=== PATIENT | male | born 1955 | race Caucasian/White ===

== ENCOUNTER 2019-11-11 13:29 | Inpatient (IN) | payer SELFPAY ==
[2019-11-11] MEDS ORDERED: Ketorolac 30 MG/ML SDV IM ONE (13:43)
--- NOTE | 2019-11-11 13:50 | EDM.PDOC ---
ED HPI GENERAL MEDICAL PROBLEM - General Chief Complaint: Respiratory Problem Stated Complaint: TROUBLE BREATHING,CHEST HURT Time Seen by Provider: 11/11/19 13:38 Source of Information: Reports: Patient, Family History Limitations: Reports: No Limitations - History of Present Illness INITIAL COMMENTS - FREE TEXT/NARRATIVE: Ran comes into [facility] ED with a 2 month hx of chest congestion and productive cough of colored sputa. BRB admixed with sputa apparent over the past month. There is more recent onset of bilateral chest pain, R>L, and SOB over the past week, escalating over the past 24 hrs. No position relieves the chest pain, and it does not radiate into the back. There is no known hx of COPD, asthma, TB, or other primary lung disease. He is a heavy smoker for several years. He has tried no meds. R chest & back Pain Score (Numeric/FACES): 4 - Related Data Allergies Allergy/AdvReac Type Severity Reaction Status Date / Time No Known Allergies Allergy Verified 11/11/19 13:52 Home Meds: Home Meds NK [No Known Home Meds] 11/11/19 [History] ED ROS GENERAL - Review of Systems Review Of Systems: See Below Constitutional: Reports: Malaise, Decreased Appetite HEENT: Reports: No Symptoms Respiratory: Reports: Shortness of Breath, Cough Cardiovascular: Reports: Chest Pain Endocrine: Reports: No Symptoms GI/Abdominal: Reports: No Symptoms : Reports: No Symptoms Musculoskeletal: Reports: No Symptoms Skin: Reports: No Symptoms Neurological: Reports: No Symptoms Psychiatric: Reports: No Symptoms Hematologic/Lymphatic: Reports: No Symptoms Immunologic: Reports: No Symptoms ED EXAM, GENERAL - Physical Exam Exam: See Below Exam Limited By: No Limitations General Appearance: Alert, WD/WN, Anxious, Mild Distress Eye Exam: Bilateral Eye: EOMI, Normal Inspection, PERRL Ears: Normal External Exam Nose: Normal Inspection Throat/Mouth: Normal Oropharynx, No Airway Compromise, Other (poor dentition) Head: Normocephalic Neck: Normal Inspection, Supple, Non-Tender, Full Range of Motion Respiratory/Chest: Chest Non-Tender, Decreased Breath Sounds (R>L), Crackles, Prolonged Expiration Cardiovascular: Regular Rate, Rhythm, No Edema, No JVD, No Murmur, No Rub GI/Abdominal: Normal Bowel Sounds, Soft, Non-Tender, No Organomegaly, No Distention, No Mass (Male) Exam: Deferred Rectal (Males) Exam: Deferred Back Exam: Normal Inspection Extremities: Normal Inspection Neurological: Alert, Oriented, CN II-XII Intact, Normal Cognition, Normal Gait, No Motor/Sensory Deficits Psychiatric: Normal Affect, Anxious Skin Exam: Warm, Dry, Intact Lymphatic: No Adenopathy Course - Vital Signs Text/Narrative:: Following assessment, I obtained a 2 view chest x ray noting large R pleural effusion with layering on lat. decub view; 12 lead ekg noting NSR; CBC noted Hgb 12.6 gm, WBC 26,100, plts adequate, L shift on diff; Lactic acid 3.1, Cr 1.3 , BUN 24; UA pending; CRP 32.2 BC pending. I discussed case with Hospitalist who supports admission and surgical consult for thoracentesis. Last Recorded V/S: Last Vital Signs Temp 35.9 C 11/11/19 13:30 Pulse 98 11/11/19 13:30 Resp 28 H 11/11/19 13:30 BP 133/67 11/11/19 13:30 Pulse Ox 94 L 11/11/19 13:30 - Orders/Labs/Meds Orders: Active Orders 24 hr Category Date Time Status Patient Status Manage Transfer [TRANSFER] Routine ADT 11/11/19 14:30 Ordered EKG Documentation Completion [RC] ASDIRECTED Care 11/11/19 13:42 Active Chest 2V [CR] Stat Exams 11/11/19 14:17 Taken Chest Decubitus Rt [CR] Stat Exams 11/11/19 14:18 Taken CULTURE BLOOD [BC] Stat Lab 11/11/19 13:41 Ordered D-DIMER QUANTITATIVE [COAG] Stat Lab 11/11/19 13:45 Received URINALYSIS W/MICROSCOPIC [UA W/MICROSCOPIC] [URIN] Stat Lab 11/11/19 13:41 Ordered Sodium Chloride 0.9% [Normal Saline] 1,000 ml Med 11/11/19 14:30 Active IV ASDIRECTED Sodium Chloride 0.9% [Saline Flush] Med 11/11/19 14:18 Active 10 ml FLUSH ASDIRECTED PRN Peripheral IV Insertion Adult [OM.PC] Routine Oth 11/11/19 14:18 Ordered EKG 12 Lead [EK] Routine Ther 11/11/19 13:41 Ordered Medication Orders Sodium Chloride (Normal Saline) 1,000 mls @ 150 mls/hr IV ASDIRECTED FLORI Sodium Chloride (Saline Flush) 10 ml FLUSH ASDIRECTED PRN PRN Reason: Keep Vein Open Labs: Laboratory Tests 11/11/19 11/11/19 11/11/19 Range/Units 13:45 13:45 13:45 WBC 26.1 H (4.5-12.0) X10-3/uL RBC 4.92 (4.30-5.75) x10(6)uL Hgb 12.6 L (13.5-17.8) g/dL Hct 39.1 (30.0-51.3) % MCV 79.4 L (80-96) fL MCH 25.6 L (27.7-33.6) pg MCHC 32.2 (32.2-35.4) g/dL RDW 16.4 H (11.5-15.5) % Plt Count 517 H (125-369) X10(3)uL MPV 7.1 L (7.4-10.4) fL Add Manual Diff Yes Neutrophils % (Manual) 54 (46-82) % Band Neutrophils % 28 H* (0-6) % Lymphocytes % (Manual) 7 L (13-37) % Monocytes % (Manual) 5 (4-12) % Metamyelocytes % 5 H (0-0) % Myelocytes % 1 H (0-0) % Toxic Granulation Few H (NOT SEEN) Anisocytosis Few Sodium 135 (135-145) mmol/L Potassium 4.8 (3.5-5.3) mmol/L Chloride 97 L (100-110) mmol/L Carbon Dioxide 26 (21-32) mmol/L BUN 24 H (7-18) mg/dL Creatinine 1.3 (0.70-1.30) mg/dL Est Cr Clr Drug Dosing 55.08 mL/min Estimated GFR (MDRD) 56 L (>60) BUN/Creatinine Ratio 18.5 (9-20) Glucose 121 H (80-116) mg/dL Lactic Acid (0.4-2.2) mmol/L Calcium 9.2 (8.6-10.2) mg/dL Total Bilirubin 0.7 (0.1-1.3) mg/dL AST 10 (5-25) IU/L ALT 13 (12-36) U/L Alkaline Phosphatase 89 (56-112) IU/L Troponin I < 0.017 L (<0.017-0.056) ng/mL C-Reactive Protein 32.2 H* (0.5-0.9) mg/dL Total Protein 7.9 (6.0-8.0) g/dL Albumin 2.6 L (3.2-4.6) g/dL Globulin 5.3 g/dL Albumin/Globulin Ratio 0.5 11/11/19 Range/Units 13:45 WBC (4.5-12.0) X10-3/uL RBC (4.30-5.75) x10(6)uL Hgb (13.5-17.8) g/dL Hct (30.0-51.3) % MCV (80-96) fL MCH (27.7-33.6) pg MCHC (32.2-35.4) g/dL RDW (11.5-15.5) % Plt Count (125-369) X10(3)uL MPV (7.4-10.4) fL Add Manual Diff Neutrophils % (Manual) (46-82) % Band Neutrophils % (0-6) % Lymphocytes % (Manual) (13-37) % Monocytes % (Manual) (4-12) % Metamyelocytes % (0-0) % Myelocytes % (0-0) % Toxic Granulation (NOT SEEN) Anisocytosis Sodium (135-145) mmol/L Potassium (3.5-5.3) mmol/L Chloride (100-110) mmol/L Carbon Dioxide (21-32) mmol/L BUN (7-18) mg/dL Creatinine (0.70-1.30) mg/dL Est Cr Clr Drug Dosing mL/min Estimated GFR (MDRD) (>60) BUN/Creatinine Ratio (9-20) Glucose (80-116) mg/dL Lactic Acid 3.1 H (0.4-2.2) mmol/L Calcium (8.6-10.2) mg/dL Total Bilirubin (0.1-1.3) mg/dL AST (5-25) IU/L ALT (12-36) U/L Alkaline Phosphatase (56-112) IU/L Troponin I (<0.017-0.056) ng/mL C-Reactive Protein (0.5-0.9) mg/dL Total Protein (6.0-8.0) g/dL Albumin (3.2-4.6) g/dL Globulin g/dL Albumin/Globulin Ratio Meds: Medications Generic Name Dose Route Start Last Admin Trade Name Freq PRN Reason Stop Dose Admin Sodium Chloride 1,000 mls @ 150 mls/hr 11/11/19 14:30 Normal Saline IV ASDIRECTED FLORI Sodium Chloride 10 ml 11/11/19 14:18 Saline Flush FLUSH ASDIRECTED PRN Keep Vein Open Discontinued Medications Generic Name Dose Route Start Last Admin Trade Name Freq PRN Reason Stop Dose Admin Ketorolac Tromethamine 30 mg 11/11/19 13:43 Toradol IM 11/11/19 13:44 ONETIME ONE Departure - Departure Time of Disposition: 14:45 Disposition: Admitted As Inpatient 68 Condition: Poor Clinical Impression: Pneumonia, Pleural effusion on right - Discharge Information *PRESCRIPTION DRUG MONITORING PROGRAM REVIEWED*: Not Applicable *COPY OF PRESCRIPTION DRUG MONITORING REPORT IN PATIENT CRISTA: Not Applicable Referrals: PCP,None [Primary Care Provider] - Forms: ED Department Discharge Sepsis Event Note - Focused Exam Vital Signs: Vital Signs Temp Pulse Resp BP Pulse Ox 11/11/19 13:30 35.9 C 98 28 H 133/67 94 L Date Exam was Performed: 11/11/19 Time Exam was Performed: 14:42 - Problem List & Annotations (1) Pleural effusion on right SNOMED Code(s): 59496784 Code(s): J90 - PLEURAL EFFUSION, NOT ELSEWHERE CLASSIFIED Status: Acute Annotation/Comment:: Surgical consult regarding thoracentesis. (2) Pneumonia SNOMED Code(s): 062590663 Code(s): J18.9 - PNEUMONIA, UNSPECIFIED ORGANISM Status: Acute Annotation /Comment:: Pneumonia of unknown etiology, needs broad spectrum coverage Qualifiers: Pneumonia type: due to unspecified organism Laterality: right Lung location: unspecified part of lung Qualified Code(s): J18.9 - Pneumonia, unspecified organism - Problem List Review Problem List Initiated/Reviewed/Updated: Yes - My Orders Last 24 Hours: My Active Orders 11/11/19 13:41 CULTURE BLOOD [BC] Stat URINALYSIS W/MICROSCOPIC [UA W/MICROSCOPIC] [URIN] Stat EKG 12 Lead [EK] Routine 11/11/19 13:42 EKG Documentation Completion [RC] ASDIRECTED 11/11/19 13:45 D-DIMER QUANTITATIVE [COAG] Stat 11/11/19 14:17 Chest 2V [CR] Stat 11/11/19 14:18 Chest Decubitus Rt [CR] Stat Sodium Chloride 0.9% [Saline Flush] 10 ml FLUSH ASDIRECTED PRN Peripheral IV Insertion Adult [OM.PC] Routine 11/11/19 14:30 Patient Status Manage Transfer [TRANSFER] Routine Sodium Chloride 0.9% [Normal Saline] 1,000 ml IV ASDIRECTED - Assessment/Plan Last 24 Hours: My Active Orders 11/11/19 13:41 CULTURE BLOOD [BC] Stat URINALYSIS W/MICROSCOPIC [UA W/MICROSCOPIC] [URIN] Stat EKG 12 Lead [EK] Routine 11/11/19 13:42 EKG Documentation Completion [RC] ASDIRECTED 11/11/19 13:45 D-DIMER QUANTITATIVE [COAG] Stat 11/11/19 14:17 Chest 2V [CR] Stat 11/11/19 14:18 Chest Decubitus Rt [CR] Stat Sodium Chloride 0.9% [Saline Flush] 10 ml FLUSH ASDIRECTED PRN Peripheral IV Insertion Adult [OM.PC] Routine 11/11/19 14:30 Patient Status Manage Transfer [TRANSFER] Routine Sodium Chloride 0.9% [Normal Saline] 1,000 ml IV ASDIRECTED Plan: Admit as InPt. Hospitalist to see.
[2019-11-11] MEDS ORDERED: Sodium Chloride 0.9% 1,000 ML IV SCH (14:30)
[2019-11-11] MEDS ORDERED: Piperacillin/Tazobactam 4.5 GM in Sodium Chloride 0.9% 100 ML IV SCH (15:00)
[2019-11-11] MEDS: Acetaminophen/HYDROcodone 325-5 MG Tab PO PRN ×2 (16:59→21:27)
[2019-11-11] MEDS: Nicotine 21 MG/24 Hr Patch TRDERM SCH (18:49)
[2019-11-11 19:23] LABS: COMMENTS: MONOCYTES- 9
--- NOTE | 2019-11-11 20:16 | OR ---
DATE OF OPERATION: 11/11/2019 SURGEON: Pj Menendez MD HISTORY: This 64-year-old gentleman is seen in the emergency room at the request of Dr. Swift for thoracentesis. The patient presents with chest pain and shortness of breath, and is found to have a large pleural effusion on his right side. He also has a white blood cell count of 26,000. I reviewed the chest x- ray and examined the patient. I agree thoracentesis is indicated. I have reviewed the risks and complications with the patient and informed consent was obtained. PROCEDURE IN DETAIL: In the upright sitting position, I percussed and auscultated and marked on his right posterior chest the area at approximately the 8th intercostal space. This area was prepped with ChloraPrep and draped sterilely. 1% lidocaine was used for local anesthesia. A 25-gauge needle was used to aspirate between the intercostal space and yellowish fluid did return. A small incision was made and thoracentesis catheter inserted. 1500 mL of turbid cloudy armendariz fluid was removed. This did result in improved breathing for the patient. O2 sats were 98%. The catheter was removed and a Band-Aid applied. The patient tolerated the procedure well. Fluid will be sent for analysis. Postprocedure chest x-ray was obtained. This shows improvement in the pleural effusion, but a fair amount of fluid remains. /[id number] TONY/JULISSA
[2019-11-11] MEDS: Piperacillin/Tazobactam 4.5 GM in Sodium Chloride 0.9% 100 ML IV SCH (21:22)
[2019-11-11] MEDS: Sodium Chloride 0.9% 10 ML Syringe FLUSH PRN (21:24)
[2019-11-12] MEDS: Acetaminophen/HYDROcodone 325-5 MG Tab PO PRN ×4 (02:45→19:57)
[2019-11-12] MEDS: Piperacillin/Tazobactam 4.5 GM in Sodium Chloride 0.9% 100 ML IV SCH ×4 (03:56→22:04)
[2019-11-12] MEDS: Sodium Chloride 0.9% 10 ML Syringe FLUSH PRN ×6 (04:33→22:37)
[2019-11-12] MEDS: Nicotine 21 MG/24 Hr Patch TRDERM SCH (10:11)
--- NOTE | 2019-11-12 11:26 | HP ---
ADMISSION DATE: 11/11/2019 REASON FOR VISIT: Feeling poorly, complicated cough, and hemoptysis. HISTORY OF PRESENT ILLNESS: Ran Penn is a 64-year-old, male, resides in [place], seen at [facility] by Dr. Gregory Swift, ER physician. He presents with 2-month history of complicated cough, chest congestion, productive sputum, on occasion bright red blood, increasing shortness of breath, and a sense of reduced well-being, some problematic increasing right and left chest wall pain and shortness of breath 24 hours prior to admission. He states some radiation into the mid back. Long-term smoker of 1 to 2 pack per day, 40 years' duration. MEDICATIONS: Daily home medications, none. PAST MEDICAL HISTORY: Significant for no previous operative procedures, hospitalizations, unusual childhood diseases, major injuries, or fractures. 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 . 4 children; 3 boys, 1 girl. 15 grandchildren suspected. 1 to 2 pack per day smoker for 40+ years' duration, iqfgrcip-ry-yss minimal alcohol consumption. No chewing tobacco. No illicit drug use. No vaping. FAMILY HISTORY: Dad at 69 of MVA, mom in her 80 of old age. Siblings have been in good health. REVIEW OF SYSTEMS: CONSTITUTIONAL: He has had about a 20-pound weight loss. EYES: Sees well. EARS: Difficulty in crowds with decreased hearing. Oropharynx: Intact dentition. Absent teeth many. CHEST: Please see HPI. CV: Please see HPI. GI: Regular predictable stools. No blood in stools. : Voiding pattern comfortable. No blood in urine. ORTHOPEDIC: Generalized joint complaints. ALLERGIES: None. ENDOCRINE: No excessive thirst or urination. PSYCHIATRIC: Mood stable. PHYSICAL EXAMINATION: VITAL SIGNS: Stable. 36.4, 112/74, mean blood pressure 86, 18 is the respirations, 100 is the O2 on 2 L. GENERAL: Gentleman appears older than stated age. Cooperative, conversant. Gives a good history. HEENT: Funduscopic benign. Conjunctivae clear. Bright tympanic membranes. Decreased hearing. Clear nasal discharge. Mouth and oropharynx reveal poor dentition. Tongue midline. No intraoral lesions. NECK: Benign. Some shotty anterior adenopathy. CHEST: Decreased breath sounds. Rales, lower 1/2 right lower lung field. Left lung field, coarse rhonchi. HEART: Distant heart sounds. Occasional ectopy. No significant murmur. ABDOMEN: Benign. No surgical scars. : Normal male genitalia. Testes descended. Hernias absent. RECTAL: Declined. EXTREMITIES: Well perfused. Venous stasis changes present. LABORATORY STUDIES: White count 26,100, hemoglobin 12.6, microcytic indices, platelets at elevated 517, 80% neutrophilic bands. D-dimer 1.46, BUN 24, GFR 56. Lactic acid 3.1. CRP 32.2. Radiographs revealed a large pleural effusion, pneumonia and/or mass, right lung. ASSESSMENT: Right lower lung mass, suspect pneumonia, concurrent malignancy is a concern. PLAN: Hospitalization indicated. IV Zosyn, IV vancomycin, aggressive fluids and hydration, complementary care and well being. Dr. Menendez has provided a thoracentesis for evaluation of fluids. /[id number] /JULISSA
--- NOTE | 2019-11-12 12:00 | PN ---
DATE SEEN: 11/12/2019 SUBJECTIVE: Ran Penn is a 64-year-old male from [place], admitted with right-sided pneumonia, large pleural effusion, tapped at 150 mL. Pneumonia is certainly an issue, other issues complicating possibility. He did well overnight, slept reluctantly, feeling well. A little short of breath. O2 has been weaned and discontinued. PHYSICAL EXAMINATION: VITAL SIGNS: Stable; 36.4, 74, 115/60, 18, and 95. GENERAL: Appears comfortable. NECK: Benign. Thyroid small. CHEST: Decreased breath sounds, right lower lung patel. Distant heart sounds. ABDOMEN: Benign. ASSESSMENT: Right lung pleural effusion, pneumonia versus inflammatory versus infectious versus malignancy. PLAN: CT chest, abdomen, and pelvis will be performed, continue IV Zosyn, continue IV vancomycin, complementary care and well being. /[id number] SALOME/JULISSA
[2019-11-12] MEDS ORDERED: Iopamidol 755 Mg/ML 100 ML Bottle IV ONE (13:47)
[2019-11-13] MEDS: Acetaminophen/HYDROcodone 325-5 MG Tab PO PRN ×3 (02:26→15:21)
[2019-11-13] MEDS: Piperacillin/Tazobactam 4.5 GM in Sodium Chloride 0.9% 100 ML IV SCH ×4 (03:34→21:51)
[2019-11-13] MEDS: Sodium Chloride 0.9% 10 ML Syringe FLUSH PRN ×7 (04:11→22:33)
[2019-11-13] MEDS: Nicotine 21 MG/24 Hr Patch TRDERM SCH (09:20)
[2019-11-13] MEDS ORDERED: HYDROmorphone 2 MG Tab PO PRN (10:47)
--- NOTE | 2019-11-13 11:27 | PN ---
DATE SEEN: 11/13/2019 REASON FOR VISIT: Complicated pneumonia, right lung mass. SUBJECTIVE: Ran Penn is a 64-year-old, male, admitted with complicated cough, respiratory difficulty, clinical evidence of a superimposed pneumonia and underlying right lung malignancy. 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 He had a pretty good night. Pain a primary issue on his behalf. Pain with deep breath, cough, movement and activity, troublesome shortness of breath. LABORATORY STUDIES: Noted, repeat CBC planned for today. White count on admission 26,000, 28% neutrophils and markedly elevated inflammatory markers including CRP of 32. Lactic acid 3.1. He had a good night otherwise. Blood cultures were negative. Culture from aspirate, thoracentesis pending. Cytology per [facility] pending. PHYSICAL EXAMINATION: VITAL SIGNS: Temperature 36.5, pulse is 72, blood pressure 97/62, 94% on room air. GENERAL: Appears comfortable. In pleuritic chest pain. HEENT: Mouth and oropharynx clear. Poor dentition. Tongue midline. No intraoral lesions. NECK: Benign. Thyroid small. CHEST: Decreased breath sounds. Rales, lower 1/2 right lung field. Diffuse wheezing throughout. HEART: Distant heart sounds. Occasional ectopy. ABDOMEN: Benign. ASSESSMENT: Right-sided pneumonia, underlying malignancy. PLAN: We will continue with aggressive antibiotic therapy, vancomycin and Zosyn. Pharmacy adjusting dose of vancomycin. Pain an issue, we will adjust accordingly. Pathology to follow. /[id number] /JULISSA
[2019-11-14] MEDS: Acetaminophen/HYDROcodone 325-5 MG Tab PO PRN ×5 (02:13→22:50)
[2019-11-14] MEDS: guaiFENesin/Dextromethorphan 100-10 MG/5 ML Soln 5 ML Cup PO PRN ×2 (03:10→22:51)
[2019-11-14] MEDS: Piperacillin/Tazobactam 4.5 GM in Sodium Chloride 0.9% 100 ML IV SCH ×4 (03:14→21:50)
[2019-11-14] MEDS: Sodium Chloride 0.9% 10 ML Syringe FLUSH PRN ×5 (03:46→22:25)
[2019-11-14] MEDS: Nicotine 21 MG/24 Hr Patch TRDERM SCH ×2 (10:03→10:19)
--- NOTE | 2019-11-14 12:45 | PN ---
DATE SEEN: 11/14/2019 SUBJECTIVE: Ran Penn is a 64-year-old, male, admitted with complicated respiratory distress, hemoptysis, and 20-pound weight loss. Chest x- ray revealed a large right pleural effusion. CT revealed carcinomatosis, mass, mediastinal adenopathy, and strong suspicion for carcinoma. Culture of the fluid growing a gram-positive cocci, likely strep pneumonia, referred culture to [facility]. I called cytology to [facility]. No pathology back on cytology. Doing a little bit better. Cough is improving. Switched from hydrocodone to Dilaudid, back to hydrocodone for pain control. Feeling generally otherwise well. Laboratory studies, none pending. Radiograph to be performed today. OBJECTIVE: VITAL SIGNS: 36.5, 83, 102/60, 74 mean blood pressure, 20, 95. GENERAL: Appears comfortable. Speech was a bit gravelly. NECK: Benign. Thyroid small. No adenopathy. CHEST: Decreased breath sounds, right lower lung field. Distant heart sounds. ABDOMEN: Benign. ASSESSMENT: Right-sided pneumonia, underlying malignancy. PLAN: We will continue with vancomycin and Zosyn, await cultures and sensitivity, and intervention pathology to follow. /[id number] SALOME/JULISSA
[2019-11-15] MEDS: Acetaminophen/HYDROcodone 325-5 MG Tab PO PRN ×6 (02:58→22:21)
[2019-11-15] MEDS: Piperacillin/Tazobactam 4.5 GM in Sodium Chloride 0.9% 100 ML IV SCH ×4 (03:30→21:29)
[2019-11-15] MEDS: Sodium Chloride 0.9% 10 ML Syringe FLUSH PRN ×7 (04:13→22:06)
--- NOTE | 2019-11-15 09:31 | PCM.PN ---
- General Info Date of Service: 11/15/19 Subjective Update: Mild pain on breathing. Endorses cough Functional Status: Reports: Pain Controlled - Review of Systems Cardiovascular: Reports: No Symptoms Gastrointestinal: Reports: No Symptoms Genitourinary: Reports: No Symptoms - Patient Data Vitals - Most Recent: Last Vital Signs Temp 98.4 F 11/15/19 04:00 Pulse 61 11/15/19 04:00 Resp 17 11/15/19 04:00 BP 116/80 11/15/19 04:00 Pulse Ox 93 L 11/15/19 04:00 Weight - Most Recent: 67.84 kg I&O - Last 24 Hours: Intake & Output 11/14/19 11/15/19 11/15/19 22:59 06:59 14:59 Intake Total 1200 770 Output Total 750 Balance 1200 20 Cl Results Last 24 Hours: Microbiology 11/11/19 15:45 Gram Stain - Final Pleural Fluid - Pleural Cavity, Right Body Fluid Culture - Preliminary 11/11/19 13:41 Aerobic Blood Culture - Preliminary Blood NO GROWTH AFTER 3 DAYS Anaerobic Blood Culture - Preliminary NO GROWTH AFTER 3 DAYS Med Orders - Current: Current Medications Hydrocodone Bitart/Acetaminophen ([place] 325-5 Mg) 1 tab PO Q4H PRN PRN Reason: Pain Last Admin: 11/15/19 06:52 Dose: 1 tab Guaifenesin/Phenylephrine HCl (Robitussin Dm) 10 ml PO Q4H PRN PRN Reason: Cough Last Admin: 11/14/19 22:51 Dose: 10 ml Vancomycin HCl 1.25 gm/ Sodium (Chloride) 250 mls @ 167 mls/hr IV Q12H [facility] Last Admin: 11/15/19 04:09 Dose: 167 mls/hr Piperacillin Sod/Tazobactam (Sod 4.5 gm/ Sodium Chloride) 100 mls @ 200 mls/hr IV Q6H [facility] Last Admin: 11/15/19 03:30 Dose: 200 mls/hr Nicotine (Habitrol) 21 mg TRDERM DAILY [facility] Last Admin: 11/14/19 10:19 Dose: Not Given Sodium Chloride (Saline Flush) 10 ml FLUSH ASDIRECTED PRN PRN Reason: Keep Vein Open Last Admin: 11/15/19 05:49 Dose: 10 ml Vancomycin HCl (Pharmacy To Dose - Vancomycin) 1 dose .XX ASDIRECTED FLORI Discontinued Medications Hydrocodone Bitart/Acetaminophen ([place] 325-5 Mg) 1 tab PO Q4H PRN PRN Reason: Pain (moderate 4-6) Last Admin: 11/13/19 07:50 Dose: 1 tab Hydromorphone HCl (Dilaudid) 2 mg PO Q3H PRN PRN Reason: Pain Last Admin: 11/13/19 12:06 Dose: 2 mg Sodium Chloride (Normal Saline) 1,000 mls @ 150 mls/hr IV ASDIRECTED FLORI Last Admin: 11/11/19 14:27 Dose: 150 mls/hr Piperacillin Sod/Tazobactam (Sod 4.5 gm/ Sodium Chloride) 100 mls @ 200 mls/hr IV Q6H FLORI Stop: 11/11/19 18:00 Last Admin: 11/11/19 16:05 Dose: 200 mls/hr Iopamidol (Isovue-370 (76%)) 77 ml IV . DIRECTED ONE Stop: 11/12/19 13:48 Last Admin: 11/12/19 13:59 Dose: 77 ml Ketorolac Tromethamine (Toradol) 30 mg IM ONETIME ONE Stop: 11/11/19 13:44 Last Admin: 11/11/19 14:27 Dose: 30 mg - Exam General: Alert Neck: Supple Lungs: Rales Cardiovascular: Regular Rate, Regular Rhythm Sepsis Event Note - Evaluation Sepsis Screening Result: No Definite Risk - Focused Exam Vital Signs: Vital Signs Temp Pulse Resp BP Pulse Ox Pulse Ox 11/15/19 04:00 98.4 F 61 17 116/80 93 L 11/15/19 00:00 96 11/14/19 23:58 97.7 F 70 18 122/83 96 Date Exam was Performed: 11/15/19 Time Exam was Performed: 15:52 - Problem List & Annotations (1) Lung mass SNOMED Code(s): 499976880 Code(s): R91.8 - OTHER NONSPECIFIC ABNORMAL FINDING OF LUNG FIELD Status: Acute Current Visit: Yes (2) Tobacco abuse SNOMED Code(s): 930226480 Code(s): Z72.0 - TOBACCO USE Status: Acute Current Visit: Yes (3) Pleural effusion on right SNOMED Code(s): 41959560 Code(s): J90 - PLEURAL EFFUSION, NOT ELSEWHERE CLASSIFIED Status: Acute Current Visit: No Annotation/Comment:: Surgical consult regarding thoracentesis. (4) Pneumonia SNOMED Code(s): 478610739 Code(s): J18.9 - PNEUMONIA, UNSPECIFIED ORGANISM Status: Acute Current Visit: No Qualifiers: Pneumonia type: due to unspecified organism Laterality: right Lung location: unspecified part of lung Qualified Code(s): J18.9 - Pneumonia, unspecified organism Annotation/Comment:: Pneumonia of unknown etiology, needs broad spectrum coverage - Problem List Review Problem List Initiated/Reviewed/Updated: Yes - Plan Plan:: Awaiting ID and Sensitivity repeat,path reports. Probably stay one more day.
[2019-11-15] MEDS: Nicotine 21 MG/24 Hr Patch TRDERM SCH (10:49)
[2019-11-15] MEDS: guaiFENesin/Dextromethorphan 100-10 MG/5 ML Soln 5 ML Cup PO PRN (19:34)
[2019-11-16] MEDS: guaiFENesin/Dextromethorphan 100-10 MG/5 ML Soln 5 ML Cup PO PRN (02:22)
[2019-11-16] MEDS: Acetaminophen/HYDROcodone 325-5 MG Tab PO PRN ×2 (02:23→06:22)
[2019-11-16] MEDS: Piperacillin/Tazobactam 4.5 GM in Sodium Chloride 0.9% 100 ML IV SCH (03:49)
[2019-11-16] MEDS: Sodium Chloride 0.9% 10 ML Syringe FLUSH PRN ×2 (04:25→05:59)
--- NOTE | 2019-11-16 13:10 | DISCH ---
DISCHARGE DATE: 11/16/2019 REASON FOR ADMISSION: 1. Community-acquired pneumonia. 2. Tobacco abuse. DISCHARGE DIAGNOSES: 1. Community-acquired pneumonia. 2. Lung masses, suggestive of neoplasia. 3. Tobacco abuse. BRIEF HISTORY AND HOSPITAL COURSE: This is a 64-year-old male who came in with cough, fever, weight loss, and was found to have some masses in the lung. On the basis of obvious findings and pneumonia, he was started on Zosyn and vancomycin. The sputum culture grew Streptococcus anginosus which was hard to obtain sensitivities to. He did well with the exception of chest pain on coughing. Pathology of the mass is pending at the time of discharge because he had a biopsy performed by Dr. Menendez on November 11, 2019, and thoracentesis. DISCHARGE MEDICATIONS: I will discharge him today, which is November 16, 2019, on the following medications: 1. Augmentin 875 mg p.o. b.i.d. for a week. 2. Prednisone 10 mg twice a day for 5 days. 3. Percocet 1 tablet t.i.d. p.r.n. for pain. FOLLOWUP: He will have a followup visit next week with Dr. Orellana. I spent more than 35 minutes on the discharge of the patient. /[id number] FABIAN/JULISSA
== END 2019-11-16 11:20 | disposition home or self-care (01) | DRG 180 ==
LOC: FB.ED 13:29 → FB.MS 14:30
PROVIDERS: ADMIT Family Medicine; ATTEND Family Medicine
PROC: 0W993ZZ Drainage of Right Pleural Cavity, Percutaneous Approach (ICD-10-PCS; principal; 2019-11-11)
DX: C34.91 Malignant neoplasm of unspecified part of right bronchus or lung (principal); J18.9 Pneumonia, unspecified organism; J90 Pleural effusion, not elsewhere classified; R91.8 Other nonspecific abnormal finding of lung field; F17.210 Nicotine dependence, cigarettes, uncomplicated; B95.4 Other streptococcus as the cause of diseases classified elsewhere
CPT/HCPCS: 36415; 71045; 71045-RT; 71046; 71260; 74177; 80053; 80202; 81001; 82150; 82945; 83605; 83615; 83986; 84157; 84484; 85025; 85379; 86140; 87040; 87070; 87205; 89051; 93005; 93010; 94760; 96372; 99284; 99285-25; A9270-GY; J1885; J2543; J3370; J7030; J7050; Q9967

== ENCOUNTER 2019-11-21 01:56 | Observation (INO) | payer SELFPAY ==
[2019-11-21] MEDS ORDERED: Aspirin 81 MG Tab.Chew PO ONE (02:25)
[2019-11-21] MEDS ORDERED: Albuterol/Ipratropium 3.0-0.5 MG/3 ML Neb Soln NEB ONE (02:25)
[2019-11-21] MEDS ORDERED: predniSONE 20 MG Tab PO ONE (02:25)
[2019-11-21] MEDS ORDERED: Morphine 2 MG/ML Syringe IVPUSH ONE ×2 (02:25→03:07)
[2019-11-21] MEDS ORDERED: Morphine 2 MG/ML Syringe IM ONE (02:35)
[2019-11-21] MEDS ORDERED: Furosemide 40 MG/4 ML VIAL IVPUSH ONE (03:08)
[2019-11-21] MEDS ORDERED: Metolazone 2.5 MG Tab PO ONE (03:08)
[2019-11-21] MEDS: Sodium Chloride 0.9% 10 ML Syringe FLUSH PRN ×2 (03:20→07:18)
--- NOTE | 2019-11-21 03:39 | EDM.PDOC ---
ED HPI GENERAL MEDICAL PROBLEM - General Chief Complaint: Respiratory Problem Stated Complaint: SOB; CHEST PAIN; BACK PAIN Time Seen by Provider: 11/21/19 02:15 Source of Information: Reports: Patient History Limitations: Reports: No Limitations - History of Present Illness INITIAL COMMENTS - FREE TEXT/NARRATIVE: Patient presented to the ED because of increasing cough and dyspnea fo the past 2 days. He was diagnosed with lung CA 1 week ago and had a thoracentesis done to drain a right sided pleural effusion. There is no associated fever/chills and his cough is mostly [id number] R chest & back Pain Score (Numeric/FACES): 7 - Related Data Allergies Allergy/AdvReac Type Severity Reaction Status Date / Time No Known Allergies Allergy Verified 11/21/19 02:06 Home Meds: Home Meds Amoxicillin/Potassium Clav [Augmentin 875-125 Tablet] 1 each PO BID #14 tablet 11/16/19 [Rx] predniSONE 20 mg PO BID #10 tab 11/16/19 [Rx] Past Medical History HEENT History: Reports: Other (See Below) Other HEENT History: states he had an ear infection before Respiratory History: Reports: COPD, Other (See Below) Other Respiratory History: lung CA Oncologic (Cancer) History: Reports: Lung - Infectious Disease History Infectious Disease History: Reports: Chicken Pox, Measles, Mumps - Past Surgical History Head Surgeries/Procedures: Reports: None Social & Family History - Family History Family Medical History: Noncontributory - Tobacco Use Smoking Status *Q: Current Every Day Smoker Years of Tobacco use: 40 Packs/Tins Daily: 1 - Caffeine Use Caffeine Use: Reports: Coffee, Soda - Alcohol Use Days Per Week of Alcohol Use: 2 Number of Drinks Per Day: 6 Total Drinks Per Week: 12 - Recreational Drug Use Recreational Drug Use: No ED ROS GENERAL - Review of Systems Review Of Systems: See Below Constitutional: Denies: Fever, Chills, Night Sweats HEENT: Reports: No Symptoms Respiratory: Reports: Shortness of Breath, Cough. Denies: Sputum Cardiovascular: Reports: No Symptoms, Chest Pain, Blood Pressure Problem Endocrine: Reports: No Symptoms GI/Abdominal: Reports: No Symptoms : Reports: No Symptoms Musculoskeletal: Reports: No Symptoms Skin: Reports: No Symptoms Neurological: Reports: No Symptoms Psychiatric: Reports: No Symptoms Hematologic/Lymphatic: Reports: No Symptoms Immunologic: Reports: No Symptoms ED EXAM, GENERAL - Physical Exam Exam: See Below Exam Limited By: No Limitations General Appearance: Alert, WD/WN, No Apparent Distress Eye Exam: Bilateral Eye: PERRL Ears: Normal External Exam, Normal Canal Nose: Normal Inspection, Normal Mucosa, No Blood Throat/Mouth: Normal Inspection, Normal Lips, Normal Teeth, No Airway Compromise Head: Atraumatic, Normocephalic Neck: Normal Inspection, Supple, Non-Tender, Full Range of Motion Respiratory/Chest: No Respiratory Distress, No Accessory Muscle Use, Other ( decrease BS RL) Cardiovascular: Normal Peripheral Pulses, Regular Rate, Rhythm, No Edema, No Gallop, No JVD, No Murmur GI/Abdominal: Normal Bowel Sounds, Soft, Non-Tender, No Organomegaly, No Distention, No Abnormal Bruit, No Mass Back Exam: Normal Inspection, Full Range of Motion Extremities: Normal Inspection, Normal Range of Motion Neurological: Alert, Oriented, CN II-XII Intact, Normal Cognition, Normal Gait, Normal Reflexes, No Motor/Sensory Deficits Psychiatric: Normal Affect, Normal Mood Skin Exam: Warm, Dry, Intact, Normal Color, No Rash Course - Vital Signs Text/Narrative:: labs/EKG/CXRreviewed with the patient and verbalized full understanding Lasix 40 mg IV x1 zaroxolyn 2.5 mg po x1 Oxygen VNC Sug[place] consult was done with Dr Wolf for a thoracentesis today Last Recorded V/S: Last Vital Signs Temp 36.3 C 11/21/19 01:56 Pulse 89 11/21/19 01:56 Resp 32 H 11/21/19 01:56 BP 141/88 H 11/21/19 01:56 Pulse Ox 98 11/21/19 01:56 - Orders/Labs/Meds Orders: Active Orders 24 hr Category Date Time Status EKG Documentation Completion [RC] ASDIRECTED Care 11/21/19 02:17 Active RT Aerosol Therapy [RC] ASDIRECTED Care 11/21/19 02:28 Active Chest 2V [CR] Stat Exams 11/21/19 02:56 Taken Sodium Chloride 0.9% [Saline Flush] Med 11/21/19 03:07 Ordered 10 ml FLUSH ASDIRECTED PRN Saline Lock Insert [OM.PC] Routine Oth 11/21/19 03:07 Ordered EKG 12 Lead [EK] Routine Ther 11/21/19 02:16 Ordered Medication Orders Sodium Chloride (Saline Flush) 10 ml FLUSH ASDIRECTED PRN PRN Reason: Keep Vein Open Last Admin: 11/21/19 03:20 Dose: 10 ml Labs: Laboratory Tests 11/21/19 11/21/19 11/21/19 Range/Units 02:00 02:00 02:00 WBC 37.7 H* (4.5-12.0) X10-3/uL RBC 3.79 L (4.30-5.75) x10(6)uL Hgb 9.8 L (13.5-17.8) g/dL Hct 29.8 L (30.0-51.3) % MCV 78.7 L (80-96) fL MCH 25.8 L (27.7-33.6) pg MCHC 32.8 (32.2-35.4) g/dL RDW 17.3 H (11.5-15.5) % Plt Count 928 H* (125-369) X10(3)uL MPV 7.1 L (7.4-10.4) fL Add Manual Diff Yes Neutrophils % (Manual) 85 H (46-82) % Band Neutrophils % 1 (0-6) % Lymphocytes % (Manual) 9 L (13-37) % Monocytes % (Manual) 4 (4-12) % Eosinophils % (Manual) 1 (0-5) % Metamyelocytes % 1 H (0-0) % Sodium 136 (135-145) mmol/L Potassium 4.7 (3.5-5.3) mmol/L Chloride 99 L (100-110) mmol/L Carbon Dioxide 25 (21-32) mmol/L BUN 23 H (7-18) mg/dL Creatinine 0.8 (0.70-1.30) mg/dL Est Cr Clr Drug Dosing 89.51 mL/min Estimated GFR (MDRD) > 60 (>60) BUN/Creatinine Ratio 28.8 H (9-20) Glucose 114 (80-116) mg/dL Calcium 8.7 (8.6-10.2) mg/dL Troponin I < 0.017 L (<0.017-0.056) ng/mL Meds: Medications Generic Name Dose Route Start Last Admin Trade Name Freq PRN Reason Stop Dose Admin Sodium Chloride 10 ml 11/21/19 03:07 11/21/19 03:20 Saline Flush FLUSH 10 ml ASDIRECTED PRN Administration Keep Vein Open Discontinued Medications Generic Name Dose Route Start Last Admin Trade Name Freq PRN Reason Stop Dose Admin Albuterol/Ipratropium 3 ml 11/21/19 02:25 11/21/19 03:10 Duoneb 3.0-0.5 Mg/3 Ml NEB 11/21/19 02:26 3 ml ONETIME ONE Administration Aspirin 324 mg 11/21/19 02:25 11/21/19 03:11 Aspirin PO 11/21/19 02:26 324 mg ONETIME ONE Administration Furosemide 40 mg 11/21/19 03:08 Lasix IVPUSH 11/21/19 03:09 NOW ONE Metolazone 2.5 mg 11/21/19 03:08 Zaroxolyn PO 11/21/19 03:09 ONETIME ONE Morphine Sulfate 4 mg 11/21/19 02:25 11/21/19 03:23 Morphine IVPUSH 11/21/19 02:26 Not Given ONETIME ONE Morphine Sulfate 4 mg 11/21/19 02:35 11/21/19 03:23 Morphine IM 11/21/19 02:36 Not Given ONETIME ONE Morphine Sulfate 4 mg 11/21/19 03:07 11/21/19 03:26 Morphine IVPUSH 11/21/19 03:08 Not Given ONETIME ONE Morphine Sulfate Confirm 11/21/19 03:02 Morphine Administered 11/21/19 03:03 Dose 4 mg .ROUTE .STK-MED ONE Morphine Sulfate 4 mg 11/21/19 03:20 11/21/19 03:23 Morphine IM 11/21/19 03:21 Not Given ONETIME ONE Morphine Sulfate 4 mg 11/21/19 03:21 11/21/19 03:24 Morphine IV 11/21/19 03:22 4 mg ONETIME ONE Administration Prednisone 40 mg 11/21/19 02:25 11/21/19 03:11 Prednisone PO 11/21/19 02:26 40 mg ONETIME ONE Administration Departure - Departure Time of Disposition: 03:05 Disposition: Refer to Observation Condition: Good Clinical Impression: Lung cancer, Pleural effusion - Discharge Information Referrals: PCP,None [Primary Care Provider] - Forms: ED Department Discharge Sepsis Event Note - Evaluation Sepsis Screening Result: No Definite Risk - Focused Exam Vital Signs: Vital Signs Temp Pulse Resp BP Pulse Ox 11/21/19 01:56 36.3 C 89 32 H 141/88 H 98 Date Exam was Performed: 11/21/19 Time Exam was Performed: 03:34 - My Orders Last 24 Hours: My Active Orders 11/21/19 02:16 EKG 12 Lead [EK] Routine 11/21/19 02:17 EKG Documentation Completion [RC] ASDIRECTED 11/21/19 02:28 RT Aerosol Therapy [RC] ASDIRECTED 11/21/19 02:56 Chest 2V [CR] Stat 11/21/19 03:07 Sodium Chloride 0.9% [Saline Flush] 10 ml FLUSH ASDIRECTED PRN Saline Lock Insert [OM.PC] Routine - Assessment/Plan Last 24 Hours: My Active Orders 11/21/19 02:16 EKG 12 Lead [EK] Routine 11/21/19 02:17 EKG Documentation Completion [RC] ASDIRECTED 11/21/19 02:28 RT Aerosol Therapy [RC] ASDIRECTED 11/21/19 02:56 Chest 2V [CR] Stat 11/21/19 03:07 Sodium Chloride 0.9% [Saline Flush] 10 ml FLUSH ASDIRECTED PRN Saline Lock Insert [OM.PC] Routine
[2019-11-21] MEDS ORDERED: Ondansetron 4 MG/2 ML SDV IV PRN (03:42)
[2019-11-21] MEDS ORDERED: Docusate Sodium 100 MG Cap PO PRN (03:42)
[2019-11-21] MEDS ORDERED: Acetaminophen 500 MG Tab PO PRN (03:56)
[2019-11-21] MEDS ORDERED: Albuterol/Ipratropium 3.0-0.5 MG/3 ML Neb Soln NEB PRN (03:58)
[2019-11-21] MEDS ORDERED: Amoxicillin/Clavulanate K 875-125 MG Tab PO SCH (09:00)
[2019-11-21] MEDS ORDERED: predniSONE 20 MG Tab PO SCH (09:00)
--- NOTE | 2019-11-21 09:17 | PCM.HP.2 ---
H&P History of Present Illness - General Date of Service: 11/21/19 Admit Problem/Dx: Admission Diagnosis/Problem Admission Diagnosis/Problem Pleural effusion Source of Information: Patient History Limitations: Reports: No Limitations - History of Present Illness Initial Comments - Free Text/Narative: 64 yo came last night with worsening SOB and pain on the right chest.He also has a non productive cough.He was recently discharged after admission for pneumonia,COPD and a possible mass in the mediastinum/lung. A thoracenteses done last week a non malignant cytology.he continue s to smoke.Pain is 10/10. Not improved by oral narcotics R chest & back Pain Score (Numeric/FACES): 3 - Related Data Allergies/Adverse Reactions: Allergies Allergy/AdvReac Type Severity Reaction Status Date / Time No Known Allergies Allergy Verified 11/21/19 02:06 Home Medications: Home Meds Amoxicillin/Potassium Clav [Augmentin 875-125 Tablet] 1 each PO BID #14 tablet 11/16/19 [Rx] predniSONE 20 mg PO BID #10 tab 11/16/19 [Rx] Past Medical History HEENT History: Reports: Other (See Below) Other HEENT History: states he had an ear infection before Respiratory History: Reports: COPD, Other (See Below) Other Respiratory History: lung CA Oncologic (Cancer) History: Reports: Lung - Infectious Disease History Infectious Disease History: Reports: Chicken Pox, Measles, Mumps - Past Surgical History Head Surgeries/Procedures: Reports: None Social & Family History - Family History Family Medical History: Noncontributory - Tobacco Use Smoking Status *Q: Current Every Day Smoker Years of Tobacco use: 40 Packs/Tins Daily: 1 Second Hand Smoke Exposure: Yes - Caffeine Use Caffeine Use: Reports: Coffee - Alcohol Use Days Per Week of Alcohol Use: 1 Number of Drinks Per Day: 1 Total Drinks Per Week: 1 - Recreational Drug Use Recreational Drug Use: No H&P Review of Systems - Review of Systems: Review Of Systems: Comprehensive ROS is negative, except as noted in HPI. Exam - Exam Exam: See Below - Vital Signs Vital Signs: Last Vital Signs Temp 98 F 11/21/19 08:00 Pulse 98 11/21/19 08:00 Resp 18 11/21/19 08:00 BP 107/67 11/21/19 08:00 Pulse Ox 97 11/21/19 08:00 Weight: 73.028 kg - Exam General: Alert, Oriented, 4 HEENT: PERRLA, Hearing Intact, Mucosa Moist & [place], Nares Patent, Normal Nasal Septum, Posterior Pharynx Clear, Conjunctiva Clear, EOMI, EACs Clear, TMs Clear Neck: Supple, Trachea Midline, 2 Lungs: Other (Stony dullness.) Cardiovascular: Regular Rate GI/Abdominal Exam: Normal Bowel Sounds, Soft, Non-Tender, No Organomegaly, No Distention, No Abnormal Bruit, No Mass, Pelvis Stable (Male) Exam: No Hernia, Normal Inspection, Normal Prostate, Circumcised Rectal (Males) Exam: Normal Exam, Normal Rectal Tone, Prostate Normal Back Exam: Normal Inspection, Full Range of Motion, NT Extremities: Normal Inspection, Normal Range of Motion, Non-Tender, No Pedal Edema, Normal Capillary Refill Skin: Warm, Dry, Intact Neurological: Cranial Nerves Intact, Reflexes Equal Bilateral Neuro Extensive - Mental Status: Alert, Oriented x3, Normal Mood/Affect, Normal Cognition Neuro Extensive - Motor, Sensory, Reflexes: CN II-XII Intact, Normal Gait, Normal Reflexes Psychiatric: Alert, Normal Affect, Normal Mood - Patient Data Lab Results Last 24 hrs: Laboratory Results - last 24 hr 11/21/19 11/21/19 11/21/19 Range/Units 02:00 02:00 02:00 WBC 37.7 H* (4.5-12.0) X10-3/uL RBC 3.79 L (4.30-5.75) x10(6)uL Hgb 9.8 L (13.5-17.8) g/dL Hct 29.8 L (30.0-51.3) % MCV 78.7 L (80-96) fL MCH 25.8 L (27.7-33.6) pg MCHC 32.8 (32.2-35.4) g/dL RDW 17.3 H (11.5-15.5) % Plt Count 928 H* (125-369) X10(3)uL MPV 7.1 L (7.4-10.4) fL Add Manual Diff Yes Neutrophils % (Manual) 85 H (46-82) % Band Neutrophils % 1 (0-6) % Lymphocytes % (Manual) 9 L (13-37) % Monocytes % (Manual) 4 (4-12) % Eosinophils % (Manual) 1 (0-5) % Metamyelocytes % 1 H (0-0) % Sodium 136 (135-145) mmol/L Potassium 4.7 (3.5-5.3) mmol/L Chloride 99 L (100-110) mmol/L Carbon Dioxide 25 (21-32) mmol/L BUN 23 H (7-18) mg/dL Creatinine 0.8 (0.70-1.30) mg/dL Est Cr Clr Drug Dosing 89.51 mL/min Estimated GFR (MDRD) > 60 (>60) BUN/Creatinine Ratio 28.8 H (9-20) Glucose 114 (80-116) mg/dL Calcium 8.7 (8.6-10.2) mg/dL Troponin I < 0.017 L (<0.017-0.056) ng/mL Result Diagrams: 11/21/19 02:00 11/21/19 02:00 Sepsis Event Note - Evaluation Sepsis Screening Result: No Definite Risk - Focused Exam Vital Signs: Vital Signs Temp Pulse Resp BP Pulse Ox Pulse Ox 11/21/19 08:00 98 F 98 18 107/67 97 11/21/19 04:30 100 11/21/19 04:00 97.7 F 87 20 137/89 100 11/21/19 03:45 92 26 H 128/71 100 11/21/19 03:20 100 11/21/19 02:00 98 11/21/19 01:56 97.3 F 89 32 H 141/88 H 98 Date Exam was Performed: 11/21/19 Time Exam was Performed: 10:22 - Problem List (1) Pleural effusion SNOMED Code(s): 43976284 ICD Code: J90 - PLEURAL EFFUSION, NOT ELSEWHERE CLASSIFIED Status: Acute Current Visit: Yes (2) Leukocytosis SNOMED Code(s): 952736778, 061538575 ICD Code: D72.829 - ELEVATED WHITE BLOOD CELL COUNT, UNSPECIFIED Status: Acute Current Visit: Yes Qualifiers: Leukocytosis type: lymphocytosis Qualified Code(s): D72.820 - Lymphocytosis (symptomatic) (3) Tobacco abuse SNOMED Code(s): 986800854 ICD Code: Z72.0 - TOBACCO USE Status: Acute Current Visit: Yes Problem List Initiated/Reviewed/Updated: Yes Orders Last 24hrs: Active Orders 24 hr Category Date Time Status Patient Status [ADT] Routine ADT 11/21/19 03:43 Active Oxygen Therapy [RC] PRN Care 11/21/19 03:43 Active Pulse Oximetry [RC] CONTINUOUS Care 11/21/19 03:53 Inactive RT Aerosol Therapy [RC] ASDIRECTED Care 11/21/19 02:28 Active Up With Assistance [RC] ASDIRECTED Care 11/21/19 03:42 Active VTE/DVT Education [RC] Per Unit Routine Care 11/21/19 03:43 Active Vital Signs [RC] 08,12,16,20,00,04 Care 11/21/19 03:43 Active Regular Diet [DIET] Diet 11/21/19 Breakfast Active Chest 2V [CR] Stat Exams 11/21/19 02:56 Taken Acetaminophen [Tylenol Extra Strength] Med 11/21/19 03:56 Active 500 mg PO Q4H PRN Albuterol/Ipratropium [DuoNeb 3.0-0.5 MG/3 ML] Med 11/21/19 03:58 Active 3 ml NEB Q4H PRN Amoxicillin/Clavulanate K [Augmentin 875 MG/125 MG] Med 11/21/19 09:00 Active 1 tab PO BID Docusate Sodium [Colace] Med 11/21/19 03:42 Active 100 mg PO BID PRN Morphine Sulfate [Morphine] Med 11/21/19 03:56 Active 4 mg IVPUSH Q4H PRN Ondansetron [Zofran] Med 11/21/19 03:42 Active 4 mg IV Q4H PRN Sodium Chloride 0.9% [Saline Flush] Med 11/21/19 03:07 Active 10 ml FLUSH ASDIRECTED PRN predniSONE Med 11/21/19 09:00 Active 20 mg PO BID Saline Lock Insert [OM.PC] Routine Oth 11/21/19 03:07 Ordered Resuscitation Status Routine Resus Stat 11/21/19 03:42 Ordered EKG 12 Lead [EK] Routine Ther 11/21/19 02:16 Ordered Medication Orders Acetaminophen (Tylenol Extra Strength) 500 mg PO Q4H PRN PRN Reason: Fever Albuterol/Ipratropium (Duoneb 3.0-0.5 Mg/3 Ml) 3 ml NEB Q4H PRN PRN Reason: Dyspnea Amoxicillin/Clavulanate Potassium (Augmentin 875 Mg/125 Mg) 1 tab PO BID [facility] Last Admin: 11/21/19 08:54 Dose: 1 tab Docusate Sodium (Colace) 100 mg PO BID PRN PRN Reason: Constipation Morphine Sulfate (Morphine) 4 mg IVPUSH Q4H PRN PRN Reason: Pain Last Admin: 11/21/19 07:15 Dose: 4 mg Ondansetron HCl (Zofran) 4 mg IV Q4H PRN PRN Reason: Nausea/Vomiting Prednisone (Prednisone) 20 mg PO BID [facility] Last Admin: 11/21/19 08:54 Dose: 20 mg Sodium Chloride (Saline Flush) 10 ml FLUSH ASDIRECTED PRN PRN Reason: Keep Vein Open Last Admin: 11/21/19 07:18 Dose: 10 ml Admin: 11/21/19 03:20 Dose: 10 ml Assessment/Plan Comment:: CXR shows loculated pleural effusion on the right side. I called and spoke with IR,who suggested an inpatient admission with a CT and possible consult with Cardiothoracic Surgery.I transferred him to [place]
--- NOTE | 2019-11-21 10:31 | PCM.DCSUM1 ---
Discharge Summary - Hospital Course Free Text/Narrative:: Transferred to [facility] for possible cardiothoracic consult Diagnosis: Stroke: No - Discharge Data Discharge Date: 11/21/19 Discharge Disposition: DC/Tfer to Acute Hospital 02 Condition: Fair - Referral to Home Health Primary Care Physician: PCP None - Discharge Diagnosis/Problem(s) (1) Pleural effusion SNOMED Code(s): 13586672 ICD Code: J90 - PLEURAL EFFUSION, NOT ELSEWHERE CLASSIFIED Status: Acute Current Visit: Yes (2) Leukocytosis SNOMED Code(s): 633728050, 522524861 ICD Code: D72.829 - ELEVATED WHITE BLOOD CELL COUNT, UNSPECIFIED Status: Acute Current Visit: Yes Qualifiers: Leukocytosis type: lymphocytosis Qualified Code(s): D72.820 - Lymphocytosis (symptomatic) (3) Tobacco abuse SNOMED Code(s): 536529769 ICD Code: Z72.0 - TOBACCO USE Status: Acute Current Visit: Yes - Discharge Plan Home Medications: Home Meds Amoxicillin/Potassium Clav [Augmentin 875-125 Tablet] 1 each PO BID #14 tablet 11/16/19 [Rx] predniSONE 20 mg PO BID #10 tab 11/16/19 [Rx] Forms: ED Department Discharge Referrals: PCP,None [Primary Care Provider] - - Discharge Summary/Plan Comment DC Time >30 min.: No - General Info Date of Service: 11/21/19 - Review of Systems General: Reports: No Symptoms Pulmonary: Reports: Shortness of Breath Cardiovascular: Reports: Chest Pain Gastrointestinal: Reports: No Symptoms - Patient Data Vitals - Most Recent: Last Vital Signs Temp 98 F 11/21/19 08:00 Pulse 98 11/21/19 08:00 Resp 18 11/21/19 08:00 BP 107/67 11/21/19 08:00 Pulse Ox 97 11/21/19 08:00 Weight - Most Recent: 73.028 kg I&O - Last 24 hours: Intake & Output 11/20/19 11/21/19 11/21/19 22:59 06:59 14:59 Intake Total 600 Output Total 500 Balance -500 600 Lab Results - Last 24 hrs: Laboratory Results - last 24 hr 11/21/19 11/21/19 11/21/19 Range/Units 02:00 02:00 02:00 WBC 37.7 H* (4.5-12.0) X10-3/uL RBC 3.79 L (4.30-5.75) x10(6)uL Hgb 9.8 L (13.5-17.8) g/dL Hct 29.8 L (30.0-51.3) % MCV 78.7 L (80-96) fL MCH 25.8 L (27.7-33.6) pg MCHC 32.8 (32.2-35.4) g/dL RDW 17.3 H (11.5-15.5) % Plt Count 928 H* (125-369) X10(3)uL MPV 7.1 L (7.4-10.4) fL Add Manual Diff Yes Neutrophils % (Manual) 85 H (46-82) % Band Neutrophils % 1 (0-6) % Lymphocytes % (Manual) 9 L (13-37) % Monocytes % (Manual) 4 (4-12) % Eosinophils % (Manual) 1 (0-5) % Metamyelocytes % 1 H (0-0) % Sodium 136 (135-145) mmol/L Potassium 4.7 (3.5-5.3) mmol/L Chloride 99 L (100-110) mmol/L Carbon Dioxide 25 (21-32) mmol/L BUN 23 H (7-18) mg/dL Creatinine 0.8 (0.70-1.30) mg/dL Est Cr Clr Drug Dosing 89.51 mL/min Estimated GFR (MDRD) > 60 (>60) BUN/Creatinine Ratio 28.8 H (9-20) Glucose 114 (80-116) mg/dL Calcium 8.7 (8.6-10.2) mg/dL Troponin I < 0.017 L (<0.017-0.056) ng/mL Med Orders - Current: Current Medications Acetaminophen (Tylenol Extra Strength) 500 mg PO Q4H PRN PRN Reason: Fever Albuterol/Ipratropium (Duoneb 3.0-0.5 Mg/3 Ml) 3 ml NEB Q4H PRN PRN Reason: Dyspnea Amoxicillin/Clavulanate Potassium (Augmentin 875 Mg/125 Mg) 1 tab PO BID [facility] Last Admin: 11/21/19 08:54 Dose: 1 tab Docusate Sodium (Colace) 100 mg PO BID PRN PRN Reason: Constipation Morphine Sulfate (Morphine) 4 mg IVPUSH Q4H PRN PRN Reason: Pain Last Admin: 11/21/19 07:15 Dose: 4 mg Ondansetron HCl (Zofran) 4 mg IV Q4H PRN PRN Reason: Nausea/Vomiting Prednisone (Prednisone) 20 mg PO BID [facility] Last Admin: 11/21/19 08:54 Dose: 20 mg Sodium Chloride (Saline Flush) 10 ml FLUSH ASDIRECTED PRN PRN Reason: Keep Vein Open Last Admin: 11/21/19 07:18 Dose: 10 ml Discontinued Medications Albuterol/Ipratropium (Duoneb 3.0-0.5 Mg/3 Ml) 3 ml NEB ONETIME ONE Stop: 11/21/19 02:26 Last Admin: 11/21/19 03:10 Dose: 3 ml Aspirin (Aspirin) 324 mg PO ONETIME ONE Stop: 11/21/19 02:26 Last Admin: 11/21/19 03:11 Dose: 324 mg Furosemide (Lasix) 40 mg IVPUSH NOW ONE Stop: 11/21/19 03:09 Last Admin: 11/21/19 03:45 Dose: 40 mg Metolazone (Zaroxolyn) 2.5 mg PO ONETIME ONE Stop: 11/21/19 03:09 Last Admin: 11/21/19 03:45 Dose: 2.5 mg Morphine Sulfate (Morphine) 4 mg IVPUSH ONETIME ONE Stop: 11/21/19 02:26 Last Admin: 11/21/19 03:23 Dose: Not Given Morphine Sulfate (Morphine) 4 mg IM ONETIME ONE Stop: 11/21/19 02:36 Last Admin: 11/21/19 03:23 Dose: Not Given Morphine Sulfate (Morphine) 4 mg IVPUSH ONETIME ONE Stop: 11/21/19 03:08 Last Admin: 11/21/19 03:26 Dose: Not Given Morphine Sulfate (Morphine) Confirm Administered Dose 4 mg .ROUTE .STK-MED ONE Stop: 11/21/19 03:03 Last Admin: 11/21/19 04:58 Dose: Not Given Morphine Sulfate (Morphine) 4 mg IM ONETIME ONE Stop: 11/21/19 03:21 Last Admin: 11/21/19 03:23 Dose: Not Given Morphine Sulfate (Morphine) 4 mg IV ONETIME ONE Stop: 11/21/19 03:22 Last Admin: 11/21/19 03:24 Dose: 4 mg Prednisone (Prednisone) 40 mg PO ONETIME ONE Stop: 11/21/19 02:26 Last Admin: 11/21/19 03:11 Dose: 40 mg - Exam General: Reports: Alert, Oriented Lungs: Reports: Decreased Breath Sounds, Rhonchi, Other (Stony dullness)
--- NOTE | 2019-11-22 10:45 | CR ---
INDICATION: Short of breath. CHEST TWO VIEWS: PA and lateral views of the chest were obtained 11/21/19 and compared with 11/11/19 and revealed marked increase in density overlying the right hemithorax with question of an air-fluid level near the lung apex, suggesting the possibility of hydropneumothorax with a very large right pleural effusion, although a large abscess with gas-forming organism could also be present. There is an appearance of a large rounded mass in the upper middle lung field, which also could represent an abscess formation measuring up to 74 mm in maximum diameter with what could be an air-fluid level within it and this was seen more anteriorly in the right upper lobe area. The left lung and pleural space remain essentially unchanged with no definite active infiltrate or effusion there. The heart did not appear enlarged. The aorta is calcified in the arch area slightly and minimally tortuous. Somewhat demineralized bony structures are suggested, compatible with osteoporosis, but should be correlated clinically. IMPRESSION: Pleuroparenchymal changes noted on the right. Multiple abscess formations suggested, although hydropneumothorax could also be present. There is marked worsening of the right hemithorax changes compared with the previous examination of 11/11/19. MTDD
== END 2019-11-21 11:00 ==
LOC: FB.ED 01:56 → FB.MS 03:59
PROVIDERS: ADMIT Emergency Medicine; ATTEND Family Medicine
DX: J90 Pleural effusion, not elsewhere classified (principal); J44.9 Chronic obstructive pulmonary disease, unspecified; J18.9 Pneumonia, unspecified organism; C34.91 Malignant neoplasm of unspecified part of right bronchus or lung; F17.210 Nicotine dependence, cigarettes, uncomplicated; Z98.890 Other specified postprocedural states
CPT/HCPCS: 36415; 71046; 80048; 84484; 85025; 93005; 94640; 94760; A9270-GY; J1940; J2270; J7620-GY